=== PATIENT | male | born 1970 | race Caucasian/White ===

== ENCOUNTER 2025-03-03 07:39 | Inpatient (IN) | payer MEDICAID ==
[~2025-03-03] VITALS: Ht 185.4 cm; Wt 73.1 kg
[~2025-03-03 07:39] MED LIST: AMLO-708 PO; ASPI-1071 PO; ATOR-429 PO; CLOP75TA34 PO; LOSA50TA64 PO; METF-1203 PO
--- NOTE | 2025-03-03 07:51 | Physician Documentation ---
History of Present Illness ~ Stated Complaint: SORE THROAT Time Seen by MD: 07:46 Primary Medical Doctor: NONE HPI This is a 55-year-old gentleman status post endarterectomy on the right side with Dr. Wynn a week ago, presents for evaluation of throat pain and sensation of difficulty swallowing that began last night without any obvious trigger, trauma provocation. No particular palliating or aggravating factors. No voice changes. No difficulty breathing. Compliant with all his meds. Denies any trauma. No bleeding from the site of wound. He states that Dr. Wynn told him to come in if he develops any symptoms in his neck. No concern for tobacco, alcohol or illicit substances use Medication Reconciliation Allergies: Coded Allergies: No Known Allergies (Unverified , 03/03/25) Scheduled Amlodipine Besylate (Amlodipine Besylate), 1 TAB PO DAILY Aspirin (Ecotrin*), 1 TAB PO DAILY Atorvastatin Calcium* (Lipitor*), 1 TAB PO DAILY Clopidogrel Bisulfate (Clopidogrel), 75 MG PO DAILY Losartan Potassium (Losartan Potassium), 50 MG PO DAILY Metformin HCl (Metformin HCl), 1 TAB PO TIDWM Past Medical History Past Medical History: No Pertinent History Past Surgical History: noncontributory Alcohol Use: None Drug Use: none Lives with: Family Lives In: Home Review of Systems ROS 10 point review of systems was performed and unless noted above in HPI is negative for acute process/complaint. Physical Exam Physical Exam GENERAL: Awake, alert, oriented, GCS 15, no apparent distress, non-toxic appearing, answers questions, follows commands appropriately. HEENT: Atraumatic, normocephalic, pupils equal, extraocular muscles intact, sclerae anicteric, mucus membranes moist, oropharynx is clear, no stridor. NECK: supple, full active range of motion, trachea midline, no thyromegaly, no l ymphadenopathy, no JVD. CARDIOVASCULAR: regular rate/rhythm, no murmurs/gallops/rubs, Pulses are 2+ in all extremities and symmetric. Capillary refill less than 2 seconds. PULMONARY: Nonlabored, good air movement ,no respiratory distress, speaking in full sentences, clear to auscultation bilaterally, no wheezing, no ronchi, no rales, no accessory muscle use. GASTROINTESTINAL: Soft, non-tender, non-distended, normal active bowel sounds, no organomegaly, no pulsatile masses, no CVA tenderness. NEUROLOGIC: Lucid with normal mental status. Normal facial symmetry. Moves all extremities symmetrically and with purpose. No truncal ataxia. Speech is fluid without evidence of dysarthria or aphasia, no focal deficits appreciated. MUSCULOSKELETAL: There is full range of motion of all extremities. There is no joint pain or joint swelling or joint erythema. There is no muscle pain or tenderness or swelling. EXTREMITIES: warm, well-perfused, no cyanosis, no clubbing, no edema, no acute deformities. Skin: warm, dry, no rashes or lesions, no jaundice, no petechiae orpurpura. No ecchymosis. PSYCHIATRIC: Normal affect, normal insight, normal concentration. Focused exam: Endarterectomy site is clean, dry, intact. No pulsatile masses. Tender to palpation. Posterior oropharynx is erythematous. No exudate. No evidence of airway obstruction. Uvula midline. No stridor. No pain with flexion or extension of the neck. Progress Results/Orders Results/Orders Orders - IVÁN MITCHELL DO Covid19 Binax Poc Result Entry (03/03/25 07:47) Ct Neck Soft Tissues (03/03/25 08:44) Cult Throat + R/O Beta Strep (03/03/25 09:42) Completed Orders - IVÁN MITCHELL DO Cbc/Diff (03/03/25 07:47) ESR (03/03/25 07:47) C-Reactive Protein (03/03/25 07:47) Pt Inr (03/03/25 07:47) PTT (03/03/25 07:47) CMP (03/03/25 07:47) Ct Neck Soft Tissues (03/03/25 08:44) Strep A Rapid (03/03/25 07:48) Vital Signs 03/03/25 03/03/25 07:45 08:00 Temp 97.4 Pulse 89 Resp 16 16 B/P (MAP) 185/107 Pulse Ox 99 O2 Flow Rate 0 Laboratory Tests Test 03/03/25 07:45 03/03/25 08:05 03/03/25 08:10 SARS-CoV-2 Antigen (Rapid) Negative White Blood Count 8.4 Red Blood Count 4.74 Hemoglobin 13.4 L Hematocrit 39.3 L Mean Corpuscular Volume 82.8 Mean Corpuscular Hemoglobin 28.3 Mean Corpuscular Hemoglobin Concent 34.1 Red Cell Distribution Width 14.3 Platelet Count 213 Mean Platelet Volume 8.8 Neutrophils (%) (Auto) 67.6 Lymphocytes (%) (Auto) 20.0 L Monocytes (%) (Auto) 8.4 Eosinophils (%) (Auto) 3.2 Basophils (%) (Auto) 0.8 Neutrophils # (Auto) 5.7 Lymphocytes # (Auto) 1.7 Monocytes # (Auto) 0.7 Eosinophils # (Auto) 0.3 Basophils # (Auto) 0.1 CBC Comment Erythrocyte Sedimentation Rate 26 H Prothrombin Time 10.7 INR International Normalized Ratio 1.0 Activated Partial Thromboplast Time 26 Coagulation Comments Sodium Level 141 Potassium Level 4.5 Chloride Level 105 Carbon Dioxide Level 30.5 Anion Gap 6 L Blood Urea Nitrogen 19 H Creatinine 0.98 Estimated GFR/1.73 m2 79 BUN/Creatinine Ratio 19.4 Glucose Level 281 H Calcium Level 8.9 Total Bilirubin 0.6 Aspartate Amino Transf (AST/SGOT) 63 H Alanine Aminotransferase (ALT/SGPT) 93 H Alkaline Phosphatase 57 C-Reactive Protein 0.22 Total Protein 8.0 Albumin 3.6 Globulin 4.4 H Albumin/Globulin Ratio 0.8 L Chemistry Comments Group A Streptococcus Rapid Negative Medical Decision Making Findings Facility Status: ED Holds, [facility] process The plan was discussed with the patient, who demonstrates clear understanding of the plan and is in agreement with the plan unless otherwise noted in the chart. All questions have been answered, all concerns were addressed unless otherwise documented. I was available throughout their ED stay for frequent reassessment and questions. Differential Diagnoses (considered and possible or likely): [COVID, influenza, RSV, strep, less likely postoperative complication such as abscess, bleed, seroma, no evidence of airway obstruction.] ??Differential Diagnoses (considered and unlikely, not requiring evaluation currently): [See above] [facility] Data Please see [facility] for the following: Independent Historians and external Records Review. Historian: [Patient] Independent Historians: ?[Record review] Medication Management: [Reviewed medication list] Social History and determinants: [Reviewed] Please see the body of the note for the following: Any independent interpretations of ECG, imaging studies. All vitals signs/haemodynamics, ordered tests were independently reviewed and interpreted by myself. Nursing triage complaint and vitals reviewed, additional nursing notes were reviewed as available and I agree unless otherwise noted or documented in contra diction in the chart Vital Signs: Independently reviewed Labs: Independently interpreted Imaging: Independently interpreted Old Medical Records: Independently reviewed, see HPI for relevant summary and information Pulse Oximetry: [98%] interpreted as [normal on room air] by me [Optical Assistant: [Regular Rate, Regular rhythm, no ectopy, NSR] reviewed and interpreted by me] Additionally notably showing: [He is hemodynamically stable. Laboratory studies show mildly elevated ESR, otherwise no white count. Transaminitis noted. CT shows complex fluid collection with a gas adjacent to the carotid.] Tests considered but not ordered include: [Repeat angiography, if necessary, can be done on an inpatient basis] Social Determinants of Health Impact: Patient was evaluated in [facility] [place] access to healthcare due to below par ratio of patient to medical providers. [] Comorbid Conditions Impacting Present Evaluation and Care/Treatment: [Recent postop] Management Discussions with other Healthcare Providers: [Dr. Wynn, his vascular surgeon, who requests the patient to be admitted. He will see him in the hospital. Hospitalist regarding admission] Treatment and Disposition Medication Management (Given or considered): [Prophylactic antibiotics]. See EMR for details Consideration for Hospitalization/Escalation/Deescalation of Care: Admission for observation has been considered, and appears to be necessary as per recommendation of the specialist ?ED Course:?[No clinical deterioration] ?Shared decision making:?[] Code status:?FULL Please see the full Electronic Medical Record for full details of nursing documentation, medications list, other records of complete past medical history and conditions, vital signs, laboratory studies, and any radiologic study interpretations by radiologists. Portions of this note were completed using [employer] dictation software and as a result there may exist minor errors in spelling. I have reviewed elements of past family and social history and agree as included in note. Departure Disposition: 09 ADMITTED INPATIENT Impression: Primary Impression: Postoperative complication Additional Impression: Neck pain Condition: Stable Referrals: NO PRIMARY CARE PROVIDER (PCP) Education Educated: Patient Educated regarding: diagnosis, treatment Signature Scribe Signature: No scribe Attestation: This note accurately reflects clinical decisions, work performed by myself, DO STEPHEN Viveros NICHOLAS M DO Mar 03, 2025 07:51
[2025-03-03 08:21] LABS: MEAN PLATELET VOLUME 8.8 FL (7.4-10.4); RED CELL DISTRIBUTION WIDTH 14.3 % (11.5-14.5)
[2025-03-03 08:29] LABS: APTT 26 SECONDS (22-32); CREATININE 0.98 MG/DL (0.60-1.10); INR 1.0 INR; TOTAL CARBON DIOXIDE 30.5 MMOL/L (24-32); eCRCL 88 ML/MIN; eGFR 79 ML/MIN
[2025-03-03] MEDS ORDERED: iohexol 300mg/ml 100ml inj. ONE (08:35)
[2025-03-03 09:42] LABS: STREP A SCREEN NEGATIVE (Neg)
--- NOTE | 2025-03-03 09:49 | RADIOLOGY REPORT ---
CLINICAL INFORMATION: Pain and swelling, 1 week status post endarterectomy. TECHNIQUE: Axial CT images of the neck soft tissues were obtained after the uneventful administration of 100 mL Omnipaque 300 IV contrast. Coronal and sagittal reformatted images were obtained, stored, and reviewed. One or more of the following dose reduction techniques were used: Automated exposure control. Adjustment of mA and/or kV according to patient size. CTDIvol = 15.68 mGy DLP = 443.63 mGy-cm COMPARISON: CT CTA NECK/HEAD on DOS: 02/12/25 FINDINGS: Nasopharynx: Torus tubarius and fossa of Rosenmuller are unremarkable. No mass or fluid collection. Unremarkable adenoid tonsils. Oropharynx: Mild symmetric prominence of the lingual tonsils. Harmony tonsils are within normal limits. No mass or fluid collection identified. Hypopharynx/Larynx: Unremarkable. No mass or fluid collection. Paranasal sinuses: Clear. Lymph nodes: No lymphadenopathy. Neck glands: Small subcentimeter right thyroid nodule. Submandibular glands and parotid glands are unremarkable. Vasculature: Interval postsurgical changes consistent with history of right carotid endarterectomy. There is a complex fluid collection adjacent to the lateral aspect of the right carotid bifurcation and internal carotid artery measuring up to 2.3 x 2.4 x 4.6 cm, containing locules of gas. There is no extravasation of arterial contrast demonstrated. There is dense calcified and noncalcified atheromatous plaque in the left carotid bifurcation and proximal left ICA, similar to the prior exam with up to 70% stenosis at the proximal left internal carotid artery. Bones: Degenerative disc disease in the cervical spine with multilevel moderate to severe disc space narrowing, endplate sclerosis, and endplate spurring. Visualized superior mediastinum: Unremarkable. Lung apices: Unremarkable. Other findings: None. IMPRESSION: 1. Interval postsurgical changes of right carotid endarterectomy. Complex fluid collection along the lateral aspect of the right carotid bifurcation and right internal carotid artery containing complex fluid and gas. The gas is greater than would be expected for postoperative changes 1 week after surgery. Infectious etiology, including necrotizing infection can not be excluded in the appropriate clinical setting. Correlate with clinical findings. 2. No extravasation of arterial contrast is seen associated with the collection. 3. Atherosclerotic plaque of the left carotid bifurcation and proximal ICA as described above, similar to the prior exam. 4. Additional findings as detailed above.
[2025-03-03] MEDS ORDERED: VANCOMYCIN 1GM 200ML H20 (PEG) 200 ML IV ONE (10:25)
[2025-03-03] MEDS: vancomycin/NS 1 GM ADD-VANTAGE 250 ML IV ONE (11:00)
[2025-03-03 12:30] VITALS: BP 150/94; PULSE 82; RESP 16; TEMP 97.3; O2SAT 98
[2025-03-03] MEDS ORDERED: ondansetron/PF 4mg/2ml inj IV PRN ×2 (12:45→12:55)
[2025-03-03] MEDS ORDERED: potassium Cl 20 mEq SR tablet PO PRN ×4 (12:45→12:55)
[2025-03-03] MEDS ORDERED: magnesium sulf-water 2g/50mL 50 ML IV PRN ×2 (12:45→12:55)
[2025-03-03] MEDS ORDERED: potassium Cl 40MEQ/1/2NS 520ml 520 ML IV PRN ×2 (12:45→12:55)
[2025-03-03] MEDS ORDERED: magnesium Cl slow-release 64mg tablet PO PRN ×2 (12:45→12:55)
[2025-03-03] MEDS ORDERED: magnesium sulf-water 4G/100mL 100 ML IV PRN ×2 (12:45→12:55)
[2025-03-03] MEDS ORDERED: mag hydrox/Alum hydrox/simeth 30ml oral suspension PO PRN ×2 (12:45→12:55)
[2025-03-03] MEDS ORDERED: magnesium hydroxide 30ml (MOM) UD suspension PO PRN ×2 (12:45→12:55)
[2025-03-03 13:43] LABS: APTT 26 SECONDS (22-32); INR 1.1 INR
[2025-03-03] MEDS: piperacillin/tazo 4.5gm/100ml 100 ML IV ONE (15:57)
[2025-03-03 18:00] VITALS: BP 157/99; PULSE 80; RESP 16; TEMP 97.6; O2SAT 99
[2025-03-03] MEDS ORDERED: dextrose 50%-water 50ml dispensing syringe IV PRN ×2 (19:05)
[2025-03-03] MEDS ORDERED: glucagon, human recombinant 1mg kit SUBCUT PRN (19:05)
[2025-03-03] MEDS ORDERED: DEXTROSE 15 GM of carb/4 tabs (each vial/BOTTLE has 4 tablets) PO PRN ×2 (19:05)
[2025-03-03 20:00] VITALS: RESP 16; O2SAT 95
[2025-03-03] MEDS ORDERED: K and/or MAG REPLACEMENT MC SCH (20:00)
[2025-03-03] MEDS: K and/or MAG REPLACEMENT MC SCH (20:00)
[2025-03-03] MEDS ORDERED: docusate sod 100mg capsule PO SCH (20:00)
[2025-03-03] MEDS: docusate sod 100mg capsule PO SCH (20:25)
[2025-03-03] MEDS: heparin, porcine 5000 units/ml vial SQ SCH (20:26)
--- NOTE | 2025-03-03 20:49 | HISTORY AND PHYSICAL-Residence ---
History & Physical Providers to CC Resident Creating Document: IRINEO LÓPEZ RES ~ History of Present Illness Primary Medical Doctor: NONE Reason for Admit\Complaint: Dysphagia History of Present Illness 55-year-old male with past medical history of stroke status post carotid endarterectomy came to the ER with complaints of sore throat this morning and mild difficulty in swallowing his pills today. He denies fever, chills, cough, recent infections. He reports he has been having acid reflux for many years and has been taking Tums. He denies any choking episodes, hoarseness or voice changes. He denies weight loss. He denies chest pain, palpitations, abdominal pain, nausea, vomiting, constipation, diarrhea and neurological deficits He claims he has 80% left carotid stenosis and needs a carotid endarterectomy which is why he was admitted. Allergies: Coded Allergies: No Known Allergies (Unverified , 03/03/25) Home Medications Home Medications Active Metformin HCl 500 Mg Tablet 1 Tab PO TIDWM Ecotrin* (Aspirin) 81 Mg Tablet.dr 1 Tab PO DAILY Losartan Potassium 50 Mg Tablet 50 Mg PO DAILY Amlodipine Besylate 10 Mg Tablet 1 Tab PO DAILY 30 Days Lipitor* (Atorvastatin Calcium) 80 Mg Tablet 1 Tab PO DAILY 30 Days Clopidogrel (Clopidogrel Bisulfate) 75 Mg Tablet 75 Mg PO DAILY Do not stop medication unless instructed by prescriber. 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 Gastrointestinal: Reports less appetite, No Abdominal pain, vomiting,nausea,constipation,diarrhea. No hematemesis or melena. Musculoskeletal: No Swelling, pain in bilateral lower legs. Integumentary: No change in skin, hair, nails. No swelling, bruising, abrasions Neurologic: No weakness,No headache, neck pain, numbness or tingling of the extremities, Psychiatric: No delusions, depression, loss of interest in normal activity or change in sleep pattern, hallucinations, suicidal ideations Endocrine: No fatigue, no weakness. polydipsia, polyuria, change in appetite, heat or cold intolerance, sweating, dry skin Hematological: No bleeding, petechiae, bruising Allergies: No asthma or urticaria Exam Vitals: Vital Signs Date Time Temp Pulse Resp B/P (MAP) Pulse Ox O2 Delivery O2 Flow Rate FiO2 03/03/25 20:25 80 03/03/25 17:22 Room Air 03/03/25 12:30 97.3 16 150/94 (112) 98 03/03/25 11:41 0 General: Awake , alert, and oriented x4, resting comfortably in the bed, in no acute distress HEENT: Atraumatic, normocephalic, EOMI, anicteric sclera ; pink conjunctiva Neck: Right sided swelling near surgical site, non tender with no drainage. Trachea midline. Supple, full range of motion, no JVD Cardiac: Regular rhythm, regular rate with no murmurs all over the precordium. Respiratory: Equal breath sounds bilaterally, no tachypnea, no wheezing ,rub or rales, Chest wall is symmetric and without deformity. Gastrointestinal: Abdomen symmetric, non-distended, soft, non-tender, normal bowel sounds x4 quadrant, normoactive, no hepatosplenomegaly Musculoskeletal: No pedal edema, no cyanosis Neurological: Speech is clear, alert, and oriented x 4. No motor or sensory deficit, deep tendon reflexes normal, cerebellar intact. Cranial nerves II-XII intact. Skin: Warm and dry Diagnostic Data Last Recorded Lab Results: 03/03/2580403/03/25804 Diagnostic Data: Laboratory Tests Test 03/03/25 13:06 Prothrombin Time 10.8 SECONDS (9.0-12.0) INR International Normalized Ratio 1.1 INR Activated Partial Thromboplast Time 26 SECONDS (22-32) Coagulation Comments Additional Plan Sore throat, dysphasia probably due to GERD Resolution of symptoms by today evening Started Protonix 40 mg p.o. Carotid stenosis Previous head/neck CTA on 02/12/25 shows Left internal carotid artery demonstrates 80% stenosis of the proximal left internal carotid artery with eccentric mural wall thrombus. He had 60% stenosis of right internal carotid artery s/p carotid endarterectomy by Dr. Wynn on 02/17/25 Mild swelling in the area of right carotid endarterectomy surgical site, non erythematous, nontender with no drainage His neck CT showed fluid collection along the lateral aspect of right carotid bifurcation and right internal carotid artery containing complex fluid and gas. Patient will be observed over the weekend and scheduled for a left carotid endarterectomy by Dr. Wynn Continued aspirin 81 mg p.o.,clopidogrel 75 mg p.o. daily and atorvastatin 80 mg p.o. Patient is afebrile WBC is normal Follow up procalcitonin, lactic acid Hypertension Blood pressure was in 160's on admission Continue losartan 50 mg p.o. and amlodipine 10 mg p.o. daily NIDDM Hyperglycemia HB A1c 7.7 Glucose is elevated to 281 Discontinued his home medication metformin Started on hyperglycemia hypoglycemia protocol Code status: Full code DVT prophylaxis: Heparin GI prophylaxis: Protonix 40 mg p.o. Diet/nutrition: Regular diet Prognosis: Guarded Disposition: Continue medical management, will be observed over the weekend for left carotid endarterectomy, PT eval and DC plan Resident MD attestation: The patient note has been reviewed and supervised by senior residents PGY-2/ PGY-3. Patient was seen, examined and discussed with attending physician. Irineo López MD Internal Medicine resident, PGY-1 Date of Service: Mar 03, 2025 Billing Provider: ROHAN CRUM MD Common Visit Codes: [id number] INP/OBS CARE (HIGH) Secondary Visit Codes: [id number] CARE PLAN 30 MINUTES IRINEO LÓPEZ, MELISSA Mar 03, 2025 20:49 ROHAN CRUM MD Mar 04, 2025 08:14
[2025-03-03 22:00] VITALS: BP 134/77; PULSE 80; RESP 16; TEMP 98.6; O2SAT 98
[2025-03-04 05:52] LABS: MEAN PLATELET VOLUME 8.7 FL (7.4-10.4); RED CELL DISTRIBUTION WIDTH 14.1 % (11.5-14.5)
[2025-03-04 06:00] VITALS: BP 131/82; PULSE 71; RESP 16; TEMP 98.1; O2SAT 97
[2025-03-04 06:13] LABS: CHOL/HDL RATIO 3.0 (0.00-4.99); CREATININE 0.84 MG/DL (0.60-1.10); LDL CHOLESTEROL 48 MG/DL (50-100); TOTAL CARBON DIOXIDE 27.6 MMOL/L (24-32); eCRCL 103 ML/MIN; eGFR > 90 ML/MIN
[2025-03-04] MEDS: aspirin 81mg, enteric-coated 1 TAB TABLET.DR PO SCH (07:58)
[2025-03-04] MEDS: pantoprazole 40mg Tablet.DR PO SCH (08:00)
[2025-03-04 10:00] VITALS: BP 155/96; PULSE 78; RESP 15; TEMP 97.9; O2SAT 99
[2025-03-04] MEDS ORDERED: dextrose 50%-water 50ml dispensing syringe IV PRN ×2 (12:50)
[2025-03-04] MEDS ORDERED: glucagon, human recombinant 1mg kit SUBCUT PRN (12:50)
[2025-03-04] MEDS ORDERED: DEXTROSE 15 GM of carb/4 tabs (each vial/BOTTLE has 4 tablets) PO PRN ×2 (12:50)
[2025-03-04 18:00] VITALS: BP 148/94; PULSE 85; RESP 13; TEMP 98.1; O2SAT 98
--- NOTE | 2025-03-04 19:13 | PROGRESS NOTE ---
Progress Note ID Providers to CC ~ Progress Note Progress Note: no complaints blood cultures neg-left cea friday TRI EUBANKS MD Mar 04, 2025 19:13
[2025-03-04] MEDS: INSULIN LISPRO 100 UNIT/ML INSULN.PEN MULTI-DOSE SQ SCH (19:15)
[2025-03-04 19:25] VITALS: RESP 16; O2SAT 96
--- NOTE | 2025-03-04 20:34 | PROGRESS NOTE- Residence ---
Progress Note - Resident Providers to CC Resident Creating Document: IRINEO LÓPEZ RES ~ Antibiotic Timeout Antibiotic Ordered?: No Subjective Patient was seen and examined bedside. He has no sore throat nor difficulty in swallowing. He has no fever, chills, no neck pain. He denies any acute overnight symptoms. Objective Vital Signs Date Time Temp Pulse Resp B/P (MAP) Pulse Ox O2 Delivery O2 Flow Rate FiO2 03/04/25 19:25 16 96 Room Air 0.0 03/04/25 10:00 97.9 78 155/96 (115) Result Diagram: 03/04/25 0524 03/04/25 0524 Awake , alert, and oriented x4, resting comfortably in the bed, in no acute distress HEENT: Atraumatic, normocephalic, EOMI, anicteric sclera ; pink conjunctiva Neck: Right sided swelling near surgical site, non tender with no drainage. Trachea midline. Supple, full range of motion, no JVD Cardiac: Regular rhythm, regular rate with no murmurs all over the precordium. Respiratory: Equal breath sounds bilaterally, no tachypnea, no wheezing ,rub or rales, Chest wall is symmetric and without deformity. Gastrointestinal: Abdomen symmetric, non-distended, soft, non-tender, normal bowel sounds x4 quadrant, normoactive, no hepatosplenomegaly Musculoskeletal: No pedal edema, no cyanosis Neurological: Speech is clear, alert, and oriented x 4. No motor or sensory deficit, deep tendon reflexes normal, cerebellar intact. Cranial nerves II-XII intact. Skin: Warm and dry Coagulation Studies Laboratory Tests Test 03/03/25 13:06 Prothrombin Time 10.8 SECONDS (9.0-12.0) INR International Normalized Ratio 1.1 INR Activated Partial Thromboplast Time 26 SECONDS (22-32) Coagulation Comments Assessment Assessment 55-year-old male presented to the ER with sore throat, difficulty swallowing pills and swelling in the right neck near carotid endarterectomy surgical site. He has 80% stenosis in the proximal left carotid artery with eccentric mural wall thrombus for which he was scheduled for left carotid endarterectomy by Dr. Wynn on Friday. Plan Plan Carotid stenosis Previous head/neck CTA on 02/12/25 shows Left internal carotid artery demonstrates 80% stenosis of the proximal left internal carotid artery with eccentric mural wall thrombus. He had 60% stenosis of right internal carotid artery s/p carotid endarterectomy by Dr. Wynn on 02/17/25 Mild swelling in the area of right carotid endarterectomy surgical site, non erythematous, nontender with no drainage His neck CT showed fluid collection along the lateral aspect of right carotid bifurcation and right internal carotid artery containing complex fluid and gas. Patient will be observed over the weekend and scheduled for a left carotid endarterectomy by Dr. Wynn Continued aspirin 81 mg p.o.,clopidogrel 75 mg p.o. daily and atorvastatin 80 mg p.o. Patient is afebrile WBC is normal Follow up procalcitonin, lactic acid 03/04/25: Procalcitonin is < 0.05, lactic acid is normal No signs of infection Patient is scheduled for left carotid endarterectomy by Dr. Wynn on Friday Sore throat, dysphasia probably due to GERD Resolution of symptoms by today evening Started Protonix 40 mg p.o. 03/04/25: No symptoms of sore throat or dysphagia today Continue Protonix 40 mg Hypertension Continue losartan 50 mg p.o. and amlodipine 10 mg p.o. daily NIDDM Hyperglycemia HB A1c 7.7 Glucose is elevated to 281 Discontinued his home medication metformin Started on hyperglycemia hypoglycemia protocol and carb controlled diet 03/04/25: Glucose has downtrended to 174 Monitor glucose levels Code status: Full code DVT prophylaxis: Heparin GI prophylaxis: Protonix 40 mg p.o. Diet/nutrition: Regular diet Prognosis: Guarded Disposition: Continue medical management, scheduled for left carotid endarterectomy on Friday by Dr. Wynn, PT eval and DC plan Resident MD attestation: The patient note has been reviewed and supervised by senior residents PGY-2/ PGY-3. Patient was seen, examined and discussed with attending physician. Irineo López MD Internal Medicine resident, PGY-1 Patient is seen and examined with resident at bedside agree with the above Case discussed with Dr. Wynn Date of Service: Mar 04, 2025 Billing Provider: NATASHA JORDAN MD Common Visit Codes: [id number] INP/OBS CARE(HIGH) IRINEO LÓPEZ, RES Mar 04, 2025 20:34 NATASHA JORDAN MD Mar 05, 2025 09:39
[2025-03-04] MEDS: insulin glargine (Lantus) pen - multi-dose SQ SCH (21:26)
[2025-03-04 22:00] VITALS: BP 150/92; PULSE 81; RESP 18; TEMP 97.8; O2SAT 98
[2025-03-05 06:00] VITALS: BP 148/83; PULSE 78; RESP 18; TEMP 98.1; O2SAT 98
[2025-03-05 06:13] LABS: MEAN PLATELET VOLUME 8.8 FL (7.4-10.4); RED CELL DISTRIBUTION WIDTH 14.4 % (11.5-14.5)
[2025-03-05 06:44] LABS: CREATININE 0.81 MG/DL (0.60-1.10); TOTAL CARBON DIOXIDE 26.1 MMOL/L (24-32); eCRCL 107 ML/MIN; eGFR > 90 ML/MIN
[2025-03-05 08:00] VITALS: RESP 18; O2SAT 98
[2025-03-05 10:00] VITALS: BP 156/92; PULSE 81; RESP 18; TEMP 97.7; O2SAT 100
--- NOTE | 2025-03-05 11:16 | PROGRESS NOTE ---
Progress Note ID Providers to CC ~ Progress Note Progress Note: no complaints/cea friday TRI EUBANKS MD Mar 05, 2025 11:16
[2025-03-05 17:00] VITALS: BP 155/86; PULSE 88; RESP 16; TEMP 97.5; O2SAT 100
--- NOTE | 2025-03-05 17:43 | PROGRESS NOTE- Residence ---
Progress Note - Resident Providers to CC Resident Creating Document: IRINEO LÓPEZ RES ~ Antibiotic Timeout Antibiotic Ordered?: No Subjective Patient was seen and examined bedside. He has no sore throat nor difficulty in swallowing. He has no fever, chills, no neck pain. He denies any acute overnight symptoms. Objective Vital Signs Date Time Temp Pulse Resp B/P (MAP) Pulse Ox O2 Delivery O2 Flow Rate FiO2 03/05/25 17:00 97.5 88 16 155/86 (109) 100 Room Air 03/04/25 19:25 0.0 Result Diagram: 03/05/25 0432 03/05/25 0432 Awake , alert, and oriented x4, resting comfortably in the bed, in no acute distress HEENT: Atraumatic, normocephalic, EOMI, anicteric sclera ; pink conjunctiva Neck: Right sided mild swelling near surgical site, non tender with no drainage. Trachea midline. Supple, full range of motion, no JVD Cardiac: Regular rhythm, regular rate with no murmurs all over the precordium. Respiratory: Equal breath sounds bilaterally, no tachypnea, no wheezing ,rub or rales, Chest wall is symmetric and without deformity. Gastrointestinal: Abdomen symmetric, non-distended, soft, non-tender, normal bowel sounds x4 quadrant, normoactive, no hepatosplenomegaly Musculoskeletal: No pedal edema, no cyanosis Neurological: Speech is clear, alert, and oriented x 4. No motor or sensory deficit, deep tendon reflexes normal, cerebellar intact. Cranial nerves II-XII intact. Skin: Warm and dry Coagulation Studies Laboratory Tests Test 03/03/25 13:06 Prothrombin Time 10.8 SECONDS (9.0-12.0) INR International Normalized Ratio 1.1 INR Activated Partial Thromboplast Time 26 SECONDS (22-32) Coagulation Comments Assessment Assessment 55-year-old male presented to the ER with sore throat, difficulty swallowing pills and swelling in the right neck near carotid endarterectomy surgical site. He has 80% stenosis in the proximal left carotid artery with eccentric mural wall thrombus for which he was scheduled for left carotid endarterectomy by Dr. Wynn on Friday. Plan Plan Carotid stenosis Previous head/neck CTA on 02/12/25 shows Left internal carotid artery demonstrates 80% stenosis of the proximal left internal carotid artery with eccentric mural wall thrombus. He had 60% stenosis of right internal carotid artery s/p carotid endarterectomy by Dr. Wynn on 02/17/25 Mild swelling in the area of right carotid endarterectomy surgical site, non erythematous, nontender with no drainage His neck CT showed fluid collection along the lateral aspect of right carotid bifurcation and right internal carotid artery containing complex fluid and gas. Patient will be observed over the weekend and scheduled for a left carotid endarterectomy by Dr. Wynn Continued aspirin 81 mg p.o.,clopidogrel 75 mg p.o. daily and atorvastatin 80 mg p.o. Patient is afebrile WBC is normal Follow up procalcitonin, lactic acid 03/04/25: Procalcitonin is < 0.05, lactic acid is normal No signs of infection Patient is scheduled for left carotid endarterectomy by Dr. Wynn on Friday03/05/25: Vital signs are normal WBC is normal Scheduled for left carotid endarterectomy by Dr. Wynn on friday Sore throat, dysphasia probably due to GERD Resolution of symptoms by today evening Started Protonix 40 mg p.o. 03/04/25: No symptoms of sore throat or dysphagia today Continue Protonix 40 mg Hypertension Continue losartan 50 mg p.o. and amlodipine 10 mg p.o. daily T2DM Hyperglycemia HB A1c 7.7 Glucose is elevated to 281 Discontinued his home medication metformin Started on hyperglycemia hypoglycemia protocol and carb controlled diet 03/04/25: Glucose has downtrended to 174 Monitor glucose levels 03/05/25: Glucose has downtrended to 120, goals ranging should be between 140-180s during hospitalization. Code status: Full code DVT prophylaxis: Heparin GI prophylaxis: Protonix 40 mg p.o. Diet/nutrition: Regular diet Prognosis: Guarded Disposition: Continue medical management, scheduled for left carotid endarterectomy on Friday by Dr. Wynn, PT eval and DC plan Resident attestation: The patient note has been reviewed and supervised by senior residents PGY-3 Dr Cottrell Patient was seen, examined and discussed with attending physician, Dr Abbey López MD Internal Medicine resident, PGY-1 Date of Service: Mar 05, 2025 Billing Provider: NATASHA JORDAN MD Common Visit Codes: [id number] INP/OBS CARE(HIGH) IRINEO LÓPEZ, RES Mar 05, 2025 17:43 ESTEFANIA COTTRELL, RES Mar 05, 2025 18:40 NATASHA JORDAN MD Mar 07, 2025 08:43
[2025-03-05 20:00] VITALS: RESP 16; O2SAT 99
[2025-03-05 22:00] VITALS: BP 149/88; PULSE 89; RESP 16; TEMP 97.9; O2SAT 99
[2025-03-06 05:39] LABS: MEAN PLATELET VOLUME 8.8 FL (7.4-10.4); RED CELL DISTRIBUTION WIDTH 14.2 % (11.5-14.5)
[2025-03-06 06:00] VITALS: BP 121/62; PULSE 86; RESP 19; TEMP 98.1; O2SAT 100
[2025-03-06 06:04] LABS: CREATININE 0.86 MG/DL (0.60-1.10); TOTAL CARBON DIOXIDE 28.7 MMOL/L (24-32); eCRCL 100 ML/MIN; eGFR > 90 ML/MIN
[2025-03-06 08:00] VITALS: RESP 19; O2SAT 100
--- NOTE | 2025-03-06 10:47 | PROGRESS NOTE- Residence ---
Progress Note - Resident Providers to CC Resident Creating Document: IRINEO LÓPEZ RES ~ Antibiotic Timeout Antibiotic Ordered?: No Subjective Patient was seen and examined bedside. He has no sore throat nor difficulty in swallowing. He has no fever, chills, no neck pain. He denies any acute overnight symptoms. Objective Vital Signs Date Time Temp Pulse Resp B/P (MAP) Pulse Ox O2 Delivery O2 Flow Rate FiO2 03/06/25 07:57 86 03/06/25 06:00 98.1 19 121/62 (81) 100 Room Air 03/05/25 20:00 0.0 Result Diagram: 03/06/25 0458 03/06/25 0458 Awake , alert, and oriented x4, resting comfortably in the bed, in no acute distress HEENT: Atraumatic, normocephalic, EOMI, anicteric sclera ; pink conjunctiva Neck: Right sided very mild swelling near surgical site, non tender with no drainage. Trachea midline. Supple, full range of motion, no JVD Cardiac: Regular rhythm, regular rate with no murmurs all over the precordium. Respiratory: Equal breath sounds bilaterally, no tachypnea, no wheezing ,rub or rales, Chest wall is symmetric and without deformity. Gastrointestinal: Abdomen symmetric, non-distended, soft, non-tender, normal bowel sounds x4 quadrant, normoactive, no hepatosplenomegaly Musculoskeletal: No pedal edema, no cyanosis Neurological: Speech is clear, alert, and oriented x 4. No motor or sensory deficit, deep tendon reflexes normal, cerebellar intact. Cranial nerves II-XII intact. gait is unstable due to residual stroke deficit Skin: Warm and dry Coagulation Studies Laboratory Tests Test 03/03/25 13:06 Prothrombin Time 10.8 SECONDS (9.0-12.0) INR International Normalized Ratio 1.1 INR Activated Partial Thromboplast Time 26 SECONDS (22-32) Coagulation Comments Assessment Assessment 55-year-old male presented to the ER with sore throat, difficulty swallowing pills and swelling in the right neck near carotid endarterectomy surgical site. He has 80% stenosis in the proximal left carotid artery with eccentric mural wall thrombus for which he was scheduled for left carotid endarterectomy by Dr. Wynn on Friday. Plan Plan Bilateral Carotid stenosis Previous head/neck CTA on 02/12/25 shows Left internal carotid artery demonstrates 80% stenosis of the proximal left internal carotid artery with eccentric mural wall thrombus. He had 60% stenosis of right internal carotid artery s/p carotid endarterectomy by Dr. Wynn on 02/17/25 Mild swelling in the area of right carotid endarterectomy surgical site, non erythematous, nontender with no drainage His neck CT showed fluid collection along the lateral aspect of right carotid bifurcation and right internal carotid artery containing complex fluid and gas. Patient will be observed over the weekend and scheduled for a left carotid endarterectomy by Dr. Wynn Continued aspirin 81 mg p.o.,clopidogrel 75 mg p.o. daily and atorvastatin 80 mg p.o. Patient is afebrile WBC is normal Follow up procalcitonin, lactic acid 03/04/25: Procalcitonin is < 0.05, lactic acid is normal No signs of infection Patient is scheduled for left carotid endarterectomy by Dr. Wynn on Friday03/05/25: Vital signs are normal WBC is normal Scheduled for left carotid endarterectomy by Dr. Wynn on friday03/06/25: No complaints reported Vital signs are normal WBC is normal Scheduled for left carotid endarterectomy by Dr. Wynn on friday Sore throat, dysphasia probably due to GERD Resolution of symptoms by today evening Started Protonix 40 mg p.o. 03/04/25: No symptoms of sore throat or dysphagia today Continue Protonix 40 mg Hypertension Continue losartan 50 mg p.o. and amlodipine 10 mg p.o. daily T2DM Hyperglycemia HB A1c 7.7 Glucose is elevated to 281 Discontinued his home medication metformin Started on hyperglycemia hypoglycemia protocol and carb controlled diet 03/04/25: Glucose has downtrended to 174 Monitor glucose levels 03/05/25: Glucose has downtrended to 120, goals ranging should be between 140-180s during hospitalization. 03/06/25: Glucose is normal 125, reduced Lantus dose from 15 to 10 Monitor BMP Code status: Full code DVT prophylaxis: Heparin subQ GI prophylaxis: Protonix 40 mg p.o. Diet/nutrition: Regular diet, NPO after midnight Prognosis: Guarded Disposition: Continue medical management, scheduled for left carotid endarterectomy on Friday by Dr. Wynn, PT eval and DC plan Resident attestation: The patient note has been reviewed and supervised by senior residents PGY-3 Dr Cottrell Patient was seen, examined and discussed with attending physician, Dr Abbey López MD Internal Medicine resident, PGY-1 Date of Service: Mar 06, 2025 Billing Provider: NATASHA JORDAN MD Common Visit Codes: [id number] INP/OBS CARE(HIGH) IRINEO LÓPEZ, RES Mar 06, 2025 10:47 ESTEFANIA COTTRELL, RES Mar 06, 2025 19:10 NATASHA JORDAN MD Mar 07, 2025 08:44
[2025-03-06] MEDS: lactose-reduced food (Ensure Enlive) - 237ml bottle PO SCH (13:00)
[2025-03-06 13:19] VITALS: BP 157/94; PULSE 84; RESP 18; TEMP 97.5; O2SAT 100
[2025-03-06 18:00] VITALS: BP 130/78; PULSE 83; RESP 15; TEMP 98.2; O2SAT 98
[2025-03-06 20:00] VITALS: RESP 15; O2SAT 98
[2025-03-06] MEDS: insulin glargine (Lantus) pen - multi-dose SQ SCH (20:38)
[2025-03-06 22:00] VITALS: BP 144/86; PULSE 80; RESP 16; TEMP 97; O2SAT 100
[2025-03-07] VITALS (22 sets, daily range): BP systolic 106–161; BP diastolic 58–91; PULSE 70–100; RESP 10–17; TEMP 96.8–97.5; O2SAT 97–100
--- NOTE | 2025-03-07 05:42 | ELECTROCARDIOGRAPH REPORT ---
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 DEON Levi Measurements Intervals [place] Rate: 77 P: 55 SD: 149 QRS: -64 QRSD: 142 T: 17 QT: 423 QTc: 479 Interpretive Statements Sinus rhythm Right bundle branch block Inferior infarct, old Electronically Signed On 03-07-2025 13:52:[address] DEON Levi Please click the below link to view image of tracing.
[2025-03-07 05:49] LABS: MEAN PLATELET VOLUME 8.6 FL (7.4-10.4); RED CELL DISTRIBUTION WIDTH 14.4 % (11.5-14.5)
[2025-03-07 06:13] LABS: CREATININE 0.85 MG/DL (0.60-1.10); TOTAL CARBON DIOXIDE 29.4 MMOL/L (24-32); eCRCL 102 ML/MIN; eGFR > 90 ML/MIN
[2025-03-07] MEDS ORDERED: enalaprilat 1.25mg/ml 2ml vial IV PRN (08:50)
[2025-03-07] MEDS ORDERED: ringers solution, lacted 1,000 ML IV SCH (08:50)
[2025-03-07] MEDS ORDERED: HYDROmorphone/PF 0.2 MG/ML SYRINGE IV PRN ×2 (08:50)
[2025-03-07] MEDS ORDERED: morphine 4 MG/ML inj SYRINge IV PRN (08:50)
[2025-03-07] MEDS ORDERED: ondansetron/PF 4mg/2ml inj IV PRN (08:50)
[2025-03-07] MEDS ORDERED: fentaNYL/PF 50MCG/1 ML 2ML syringe IV PRN ×2 (08:50)
[2025-03-07] MEDS ORDERED: labetalol 20mg/4ml (5mg/ml) syringe IV PRN (08:50)
[2025-03-07] MEDS ORDERED: heparin 10,000 units/1 ML INJ ONE ×3 (09:13→09:51)
[2025-03-07] MEDS ORDERED: LIDOcaine 1% (10mg/ml)w/preservative inj. 20ml MDV ONE (09:23)
[2025-03-07] MEDS ORDERED: protamine sulfate 10mg/ml inj. ONE ×2 (09:23→13:18)
[2025-03-07] MEDS ORDERED: fentaNYL /PF 50mcg/ml 5ml ampule ONE (09:34)
[2025-03-07] MEDS ORDERED: midazolam 1 mg/ML 2ml injection ONE (09:34)
[2025-03-07] MEDS ORDERED: nitroPRUSSIDE 0.2mg/mL in NS 100 ML IV PRN (09:35)
[2025-03-07] MEDS ORDERED: propofol inj 20 ML IV ONE (10:02)
[2025-03-07] MEDS ORDERED: rocuronium 10mg/ml inj IV ONE (10:02)
--- NOTE | 2025-03-07 10:25 | PROGRESS NOTE ---
Progress Note ID Providers to CC ~ Progress Note Progress Note: discussed procedure including risks/benefits/alternatives TRI EUBANKS MD Mar 07, 2025 10:25
[2025-03-07] MEDS: hydrALAZINE 20mg/ml inj. IV ONE (11:20)
[2025-03-07] MEDS: ceFAZolin 2gm/dext,iso 50mL 50 ML IV ONE (11:25)
[2025-03-07] MEDS ORDERED: dexamethasone sod phosphate 4mg/ml inj. ONE (11:50)
[2025-03-07] MEDS ORDERED: ondansetron/PF 4mg/2ml inj ONE (11:50)
[2025-03-07] MEDS: LIDOcaine 1% 30ml preserv. free vial IJ ONE (11:50)
[2025-03-07] MEDS: DESMOPRESSIN IV ONE (13:15)
[2025-03-07] MEDS: NORMAL SALINE IV ONE (13:15)
[2025-03-07] MEDS ORDERED: DESMOPRESSIN IV STA (13:17)
[2025-03-07] MEDS ORDERED: NORMAL SALINE IV STA (13:17)
[2025-03-07] MEDS ORDERED: albumin (Human) 5% 250ml 250 ML IV ONE (13:23)
[2025-03-07] MEDS ORDERED: morphine 4 MG/ML inj SYRINge ONE (13:48)
[2025-03-07 14:08] LABS: APTT 27 SECONDS (22-32); INR 1.2 INR
--- NOTE | 2025-03-07 14:10 | PROGRESS NOTE- Residence ---
Progress Note - Resident Providers to CC Resident Creating Document: KATE DE LA TORRE, MELISSA ~ Antibiotic Timeout Antibiotic Ordered?: No Subjective Patient was seen and examined bedside. He has no sore throat nor difficulty in swallowing. He has no fever, chills, no neck pain. He denies any acute overnight symptoms. Objective Vital Signs Date Time Temp Pulse Resp B/P (MAP) Pulse Ox O2 Delivery O2 Flow Rate FiO2 03/07/25 08:00 Room Air 0.0 03/07/25 06:00 96.8 70 16 136/78 (97) 100 Result Diagram: 03/07/25 0504 03/07/25 0504 Awake , alert, and oriented x4, resting comfortably in the bed, in no acute distress HEENT: Atraumatic, normocephalic, EOMI, anicteric sclera ; pink conjunctiva Neck: Right sided very mild swelling near surgical site, non tender with no drainage. Trachea midline. Supple, full range of motion, no JVD Cardiac: Regular rhythm, regular rate with no murmurs all over the precordium. Respiratory: Equal breath sounds bilaterally, no tachypnea, no wheezing ,rub or rales, Chest wall is symmetric and without deformity. Gastrointestinal: Abdomen symmetric, non-distended, soft, non-tender, normal bowel sounds x4 quadrant, normoactive, no hepatosplenomegaly Musculoskeletal: No pedal edema, no cyanosis Neurological: Speech is clear, alert, and oriented x 4. No motor or sensory deficit, deep tendon reflexes normal, cerebellar intact. Cranial nerves II-XII intact. gait is unstable due to residual stroke deficit Skin: Warm and dry Coagulation Studies Laboratory Tests Test 03/07/25 13:25 Coagulation Comments Advance Care Planning Advanced Care plannin - 30 Minutes Assessment Assessment 55-year-old male presented to the ER with sore throat, difficulty swallowing pills and swelling in the right neck near carotid endarterectomy surgical site. He has 80% stenosis in the proximal left carotid artery with eccentric mural wall thrombus for which he was scheduled for left carotid endarterectomy by Dr. Wynn on Friday. Plan Plan Bilateral Carotid stenosis Previous head/neck CTA on 02/12/25 shows Left internal carotid artery demonstrates 80% stenosis of the proximal left internal carotid artery with eccentric mural wall thrombus. He had 60% stenosis of right internal carotid artery s/p carotid endarterectomy by Dr. Wynn on 02/17/25 Mild swelling in the area of right carotid endarterectomy surgical site, non erythematous, nontender with no drainage His neck CT showed fluid collection along the lateral aspect of right carotid bifurcation and right internal carotid artery containing complex fluid and gas. Patient will be observed over the weekend and scheduled for a left carotid endarterectomy by Dr. Wynn Continued aspirin 81 mg p.o.,clopidogrel 75 mg p.o. daily and atorvastatin 80 mg p.o. Patient is afebrile WBC is normal Follow up procalcitonin, lactic acid 03/04/25: Procalcitonin is < 0.05, lactic acid is normal No signs of infection Patient is scheduled for left carotid endarterectomy by Dr. Wynn on Friday03/05/25: Vital signs are normal WBC is normal Scheduled for left carotid endarterectomy by Dr. Wynn on friday03/06/25: No complaints reported Vital signs are normal WBC is normal Scheduled for left carotid endarterectomy by Dr. Wynn on friday03/07/2025: Vitals stable. With no acute overnight symptoms Patient is scheduled for left carotid endarterectomy today Sore throat, dysphasia probably due to GERD Resolution of symptoms by today evening Started Protonix 40 mg p.o. 03/04/25: No symptoms of sore throat or dysphagia today Continue Protonix 40 mg Hypertension Continue losartan 50 mg p.o. and amlodipine 10 mg p.o. daily T2DM HB A1c 7.7 Glucose is elevated to 281 Discontinued his home medication metformin Started on hyperglycemia hypoglycemia protocol and carb controlled diet 03/04/25: Glucose has downtrended to 174 Monitor glucose levels 03/05/25: Glucose has downtrended to 120, goals ranging should be between 140-180s during hospitalization. 03/06/25: Glucose is normal 125, reduced Lantus dose from 15 to 10 Monitor BMP 03/07/2025 Glucose normal at 138, continue Lantus 10 units as above Code status: Full code DVT prophylaxis: Heparin subQ GI prophylaxis: Protonix 40 mg p.o. Diet/nutrition: Regular diet, post surgery Prognosis: Guarded Disposition: Continue medical management, scheduled for left carotid endarterectomy today by Dr. Wynn, PT eval and DC sadie De La Torre MD Internal Medicine Resident, PGY-2 Date of Service: Mar 07, 2025 Billing Provider: NATASHA JORDAN MD Common Visit Codes: [id number] INP/OBS CARE(HIGH) KATE DE LA TORRE, RES Mar 07, 2025 14:10 NATASHA JORDAN MD Mar 10, 2025 11:18
--- NOTE | 2025-03-07 14:23 | OPERATIVE REPORT ---
Operative Report Providers to CC ~ Date of Procedure: Mar 07, 2025 Pre-Operative Diagnosis: symptomatic left ica stenosis Post-Operative Diagnosis SAME as PRE-Op Procedure Performed left cea with eeg monitoring and bovine pericardial patch Surgeon: lisa recinos Anesthesiologist: Khadar Jackson Type of Anesthesia: General Findings: critical left ica stenosis-no eeg changes Estimated Blood Loss: 300 ml Specimen Removed: ica plaque TRI EUBANKS MD Mar 07, 2025 14:23
[2025-03-07] MEDS ORDERED: HYDROcodone/acetaminophen 10/325mg tab PO PRN (14:30)
[2025-03-07] MEDS ORDERED: CLOP75TA34 PO (14:33)
[2025-03-07] MEDS ORDERED: ATOR-2 PO (14:33)
[2025-03-07] MEDS ORDERED: ASPI81TA49 PO (14:33)
[2025-03-07] MEDS ORDERED: LOSA50TA64 PO (14:33)
[2025-03-07] MEDS ORDERED: METF-1203 PO (14:33)
[2025-03-07] MEDS ORDERED: AMLO-256 PO (14:34)
[2025-03-07] MEDS: PHENYLephrine 10mg/ml inj. 50 MG in normal saline 250ml IV soln 245 ML IV SCH (15:29)
[2025-03-07] MEDS ORDERED: ceFAZolin/D5W- 1GM premix 50 ML IV SCH (16:00)
[2025-03-07] MEDS: ceFAZolin/D5W- 1GM premix 50 ML IV SCH (16:43)
[2025-03-07] MEDS: HYDROmorphone inj. 0.5 MG/0.5 ML DISP.SYRIN IV PRN (16:44)
[2025-03-07] MEDS: ondansetron/PF 4mg/2ml inj IV PRN (18:09)
--- NOTE | 2025-03-07 19:20 | CONSULTATION ---
DATE OF CONSULTATION: 03/04/2025 DICTATING PHYSICIAN: Inder Wynn MD REASON FOR CONSULTATION: Neck swelling. HISTORY OF PRESENT ILLNESS: The patient is a 55-year-old male with a history of bilateral carotid stenosis, who underwent a recent right carotid endarterectomy in the last few weeks. The patient ____ swelling, difficulty swallowing. No fever or chills. No drainage from the incision. No additional neurologic deficits identified. PAST MEDICAL HISTORY: * Bilateral carotid stenosis. * Ongoing tobacco use. * GERD. * Hyperlipidemia. * Diabetes. * Status post CVA. PAST SURGICAL HISTORY: Previous carotid endarterectomy, tonsillectomy. HOME MEDICATIONS: Metformin, Ecotrin, losartan, amlodipine, Lipitor, and Plavix. ALLERGIES: None. SOCIAL HISTORY: No history of tobacco use. REVIEW OF SYSTEMS: See H and P. PHYSICAL EXAMINATION: GENERAL: He is a well-nourished male in minimal distress. VITAL SIGNS: Unremarkable. NECK: Right neck has mild swelling. No fluctuance. No erythema. No drainage. HEART: Regular rate and rhythm. LUNGS: Clear to auscultation. ABDOMEN: Benign. NEUROLOGIC: Shows no lateralizing signs. LABORATORY DATA: Labs obtained, hematocrit of 37, platelet count 205. Chemistries unremarkable. IMAGING STUDIES: CT of the neck reveals some complex collection in the right neck wound. There is persistent severe left ICA stenosis. IMPRESSION: * Status post right ____, doing well. No evidence of wound infection. * Severe left ICA stenosis. * Hyperlipidemia. * Status post CVA. * Diabetes. * Ongoing tobacco use. RECOMMENDATIONS: * Blood cultures. * Consider left carotid endarterectomy with admission if culture is negative. Inder Wynn MD TID: [id number] RECEIPT: [id number] MARIA TERESA/MAYA/OBDULIA
[2025-03-08] VITALS (16 sets, daily range): BP systolic 132–164; BP diastolic 66–97; PULSE 82–101; RESP 12–21; O2SAT 97–100
[2025-03-08 02:19] LABS: MEAN PLATELET VOLUME 8.9 FL (7.4-10.4); RED CELL DISTRIBUTION WIDTH 14.3 % (11.5-14.5)
[2025-03-08 02:32] LABS: CREATININE 0.80 MG/DL (0.60-1.10); TOTAL CARBON DIOXIDE 25.6 MMOL/L (24-32); eCRCL 108 ML/MIN; eGFR > 90 ML/MIN
[2025-03-08] MEDS: nitroPRUSSIDE 0.2mg/mL in NS 100 ML IV SCH (08:15)
--- NOTE | 2025-03-08 09:27 | OPERATIVE REPORT ---
DATE OF SURGERY: 03/07/2025 DICTATING PHYSICIAN: Inder Wynn MD PREOPERATIVE DIAGNOSIS: Symptomatic left ICA stenosis. POSTOPERATIVE DIAGNOSIS: Symptomatic left ICA stenosis. PROCEDURE PERFORMED: Left carotid endarterectomy using EEG monitoring and bovine pericardial patch. SURGEON: Inder Wynn MD BRAKE OPERATOR SHEET METAL: None. ANESTHESIA: General/Dr. Jackson. DRAINS: Dylon x 1. INDICATIONS FOR OPERATION: A 55-year-old male with symptomatic left ICA stenosis, taken to surgery for endarterectomy. INTRAOPERATIVE FINDINGS: Critical left ICA stenosis with extensive plaque, no EEG changes. DESCRIPTION OF PROCEDURE: The patient was placed supine on the operating table. After induction of general anesthesia and placement of endotracheal tube, the neck was prepped and draped. After a timeout was performed, a transverse incision was made in the left neck. Platysma was identified and incised. Dissection was initiated into the sternocleidomastoid muscle. Facial vein was identified, isolated, ligated and divided. Carotid sheath was then incised. Hypoglossal nerve identified and preserved. The patient was heparinized with units of heparin. The common, external, and internal carotid artery were subsequently isolated. After a few minutes, the common, external, and internal carotid arteries were occluded. There were no EEG changes. An arteriotomy was extended proximally and distally. An endarterectomy was then performed. Endarterectomy was irrigated with heparinized saline. Distal flaps were tacked in place using sutures of 6-0 Prolene. Bovine pericardial patch was then brought to the field and secured in place with a running suture of 5-0 and 6-0 Prolene. Prior to securing the suture line, vessels were flushed. The suture line was then secured. Flow was then reestablished to the external carotid. After a few beats, flow was reestablished to the internal. The patient had some postoperative bleeding which required use of protamine with subsequent resolution. The wound was irrigated with antibiotic-containing solution. When hemostasis was found to be adequate, wounds closed in layers, skin closed with subcuticular stitch, dressings applied and the patient was transferred to the recovery room in stable condition after reversing from general anesthesia. Inder Wynn MD TID: [id number] RECEIPT: [id number] MARIA TERESA/SUKHWINDER/RANDOLPH
[2025-03-08] MEDS ORDERED: EMPAGLIFLOZIN 25 MG TABLET PO SCH (12:35)
[2025-03-08] MEDS ORDERED: EMPA25TA PO (12:36)
--- NOTE | 2025-03-08 13:37 | DISCHARGE SUMMARY-Residence ---
Discharge Summary Providers to Resident Creating Document: IRINEO LÓPEZMELISSA ~ Discharge Summary Admission Diagnosis: sore throat, left carotid stenosis Hospital Course DATE OF ADMISSION: 03/03/25 DATE OF DISCHARGE: 03/08/25 Discharge Diagnosis\Comment: Bilateral Carotid stenosis Swelling in right surgical site, not a complication of previous [facility] carotid endarterectomy GERD Hypertension T2DM Operations\Procedures: left carotid endarterectomy by Dr. Wynn Consultants: Surgeon-Dr. Wynn Complications: None Condition on DC: Stable New Medications: Empagliflozin (Jardiance) 25 Mg Tablet 1 TAB PO DAILY for 30 Days, #30 TAB 0 Refills Continued Medications: Amlodipine Besylate (Amlodipine Besylate) 10 Mg Tablet 1 TAB PO DAILY for 30 Days, #30 TAB 0 Refills Aspirin (Aspirin EC) 81 Mg Tablet.dr 1 TAB PO DAILY for 30 Days, #30 TAB 0 Refills Atorvastatin Calcium (Atorvastatin Calcium) 80 Mg Tablet 1 TAB PO DAILY for 30 Days, #30 TAB 0 Refills Clopidogrel Bisulfate (Clopidogrel) 75 Mg Tablet 1 TAB PO DAILY for 30 Days, #30 TAB 0 Refills Do not stop medication unless instructed by prescriber. Losartan Potassium (Losartan Potassium) 50 Mg Tablet 1 TAB PO DAILY for 30 Days, #30 TAB 0 Refills Metformin HCl (Metformin HCl) 500 Mg Tablet 1 TAB PO TIDWM for 30 Days, #60 TAB Discharge Summary: HPI as per admitting physician: 55-year-old male with past medical history of stroke status post carotid endarterectomy came to the ER with complaints of sore throat this morning and mild difficulty in swallowing his pills today. He denies fever, chills, cough, recent infections. He reports he has been having acid reflux for many years and has been taking Tums. He denies any choking episodes, hoarseness or voice changes. He denies weight loss. He denies chest pain, palpitations, abdominal pain, nausea, vomiting, constipation, diarrhea and neurological deficits He claims he has 80% left carotid stenosis and needs a carotid endarterectomy which is why he was admitted. Hospital course: Patient came in with sore throat and difficulty swallowing his pills, but there was resolution of symptoms by the evening. He had right carotid endarterectomy 1 week ago and had mild swelling in the right surgical site without any tenderness or drainage, which is not a complication of previous right carotid endarterecromy. Neck CTA showed complex fluid collection along the lateral aspect of the right carotid bifurcation and right internal carotid artery containing complex fluid and gas. Dr. Wynn was consulted, and he recommended observing the patient over the weekend and to schedule a left carotid endarterectomy. His previous head/neck CTA showed 80% stenosis of the proximal left internal carotid artery. The patient had no acute complaints and denied fever, chills. The swelling reduced and he had no sore throat or dysphagia the next day. His throat culture showed normal oral cheryl and blood culture showed no growth after 5 days. It would have probably been GERD so we started him on Protonix 40 mg p.o. We continued his home medications losartan 50 mg p.o. and amlodipine 10 mg p.o. for hypertension. His HGB A1c is 7.7 and glucose was elevated to 281 on admission, we started him on hyperglycemia hypoglycemia protocol and carb controlled diet. His glucose started trending down and Lantus 15 units was ordered. His glucose started fluctuating between 120 and 130 and his Lantus dosage was decreased to 10 units. He underwent left carotid endarterectomy on 03/08/25, without any complications. His vitals and labs were normal the next day, Dr. Centeno cleared him for discharge and he was discharged with metformin, Jardiance 25 mg and continued his home medications. Patient did not experience further complications throughout the entire hospital stay. Patient was seen and examined on the day of discharge. All labs, diagnostic workups, discharge plan discussed with the patient in detail during visit before discharge. All questions and concerns answered to the best of my professional knowledge. Imaging: Neck CT-03/03/25 1. Interval postsurgical changes of right carotid endarterectomy. Complex fluid collection along the lateral aspect of the right carotid bifurcation and right internal carotid artery containing complex fluid and gas. The gas is greater than would be expected for postoperative changes 1 week after surgery. Infectious etiology, including necrotizing infection can not be excluded in the appropriate clinical setting. Correlate with clinical findings. 2. No extravasation of arterial contrast is seen associated with the collection. 3. Atherosclerotic plaque of the left carotid bifurcation and proximal ICA as described above, similar to the prior exam. Vital Signs Date Time Temp Pulse Resp B/P (MAP) Pulse Ox O2 Delivery O2 Flow Rate FiO2 03/08/25 15:00 89 15 140/82 (101) 98 Room Air 03/08/25 13:00 97.3 03/08/25 08:00 0.0 Laboratory Tests Test 03/06/25 16:51 03/06/25 20:32 03/07/25 05:04 03/07/25 08:11 Glucometer 237 mg/dl 237 mg/dl 117 mg/dl 138 mg/dl White Blood Count 8.2 X10'3 Red Blood Count 4.60 X10'6 Hemoglobin 12.9 g/dl Hematocrit 37.4 % Mean Corpuscular Volume 81.5 FL Mean Corpuscular Hemoglobin 28.0 PG Mean Corpuscular Hemoglobin Concent 34.3 g/dL Red Cell Distribution Width 14.4 % Platelet Count 179 X10'3 Mean Platelet Volume 8.6 FL Neutrophils (%) (Auto) 63.8 % Lymphocytes (%) (Auto) 24.0 % Monocytes (%) (Auto) 8.6 % Eosinophils (%) (Auto) 3.2 % Basophils (%) (Auto) 0.4 % Neutrophils # (Auto) 5.3 X10'3 Lymphocytes # (Auto) 2.0 X10'3 Monocytes # (Auto) 0.7 X10'3 Eosinophils # (Auto) 0.3 X10'3 Basophils # (Auto) 0.0 X10'3 CBC Comment Sodium Level 140 MMOL/L Potassium Level 4.1 MMOL/L Chloride Level 105 MMOL/L Carbon Dioxide Level 29.4 MMOL/L Anion Gap 6 Blood Urea Nitrogen 25 MG/DL Creatinine 0.85 MG/DL Estimated GFR/1.73 m2 > 90 ML/MIN BUN/Creatinine Ratio 29.4 Glucose Level 120 MG/DL Calcium Level 8.9 MG/DL Magnesium Level 2.0 MG/DL Total Bilirubin 0.6 MG/DL Aspartate Amino Transf (AST/SGOT) 36 U/L Alanine Aminotransferase (ALT/SGPT) 68 U/L Alkaline Phosphatase 51 IU/L Total Protein 7.0 G/DL Albumin 3.2 G/DL Globulin 3.8 G/DL Albumin/Globulin Ratio 0.8 Chemistry Comments Test 03/07/25 13:25 03/07/25 14:48 03/07/25 16:47 03/07/25 20:36 Prothrombin Time 12.3 SECONDS INR International Normalized Ratio 1.2 INR Activated Partial Thromboplast Time 27 SECONDS Coagulation Comments Glucometer 181 mg/dl 235 mg/dl 240 mg/dl Test 03/08/25 01:35 03/08/25 08:52 03/08/25 11:59 White Blood Count 8.6 X10'3 Red Blood Count 3.54 X10'6 Hemoglobin 9.9 g/dl Hematocrit 28.8 % Mean Corpuscular Volume 81.4 FL Mean Corpuscular Hemoglobin 27.9 PG Mean Corpuscular Hemoglobin Concent 34.3 g/dL Red Cell Distribution Width 14.3 % Platelet Count 150 X10'3 Mean Platelet Volume 8.9 FL Neutrophils (%) (Auto) 84.9 % Lymphocytes (%) (Auto) 12.1 % Monocytes (%) (Auto) 2.9 % Eosinophils (%) (Auto) 0 % Basophils (%) (Auto) 0.1 % Neutrophils # (Auto) 7.3 X10'3 Lymphocytes # (Auto) 1.0 X10'3 Monocytes # (Auto) 0.3 X10'3 Eosinophils # (Auto) 0.0 X10'3 Basophils # (Auto) 0.0 X10'3 CBC Comment Sodium Level 140 MMOL/L Potassium Level 4.0 MMOL/L Chloride Level 106 MMOL/L Carbon Dioxide Level 25.6 MMOL/L Anion Gap 8 Blood Urea Nitrogen 23 MG/DL Creatinine 0.80 MG/DL Estimated GFR/1.73 m2 > 90 ML/MIN BUN/Creatinine Ratio 28.8 Glucose Level 217 MG/DL Calcium Level 7.8 MG/DL Total Bilirubin 0.5 MG/DL Aspartate Amino Transf (AST/SGOT) 27 U/L Alanine Aminotransferase (ALT/SGPT) 53 U/L Alkaline Phosphatase 41 IU/L Total Protein 6.3 G/DL Albumin 2.9 G/DL Globulin 3.4 G/DL Albumin/Globulin Ratio 0.9 Chemistry Comments Glucometer 155 mg/dl 189 mg/dl Examination at discharge: Awake , alert, and oriented x4, resting comfortably in the bed, in no acute distress HEENT: Atraumatic, normocephalic, EOMI, anicteric sclera ; pink conjunctiva Neck: Right sided very mild swelling near surgical site, non tender with no drainage. Trachea midline. Supple, full range of motion, no JVD Cardiac: Regular rhythm, regular rate with no murmurs all over the precordium. Respiratory: Equal breath sounds bilaterally, no tachypnea, no wheezing ,rub or rales, Chest wall is symmetric and without deformity. Gastrointestinal: Abdomen symmetric, non-distended, soft, non-tender, normal bowel sounds x4 quadrant, normoactive, no hepatosplenomegaly Musculoskeletal: No pedal edema, no cyanosis Neurological: Speech is clear, alert, and oriented x 4. No motor or sensory deficit, deep tendon reflexes normal, cerebellar intact. Cranial nerves II-XII intact. gait is unstable due to residual stroke deficit Skin: Warm and dry Advice at discharge: Follow up with Primary Care Provider in 1-2 weeks Follow up with Dr. Wynn in 2 weeks Please be compliant with metformin and Jardiance, and blood pressure medications Recommended carb controlled diet Avoid eating whites-sugar, salt, white bread, cakes, tortillas etc Recommended to increase physical activity Call 911 or come to ER if any emergency or neurological decline Recommend going to [facility] to obtain Primary care provider as they have current availability. you can reach them at [phone] *Problems/Diagnosis: (1) Bilateral carotid artery stenosis (2) GERD (gastroesophageal reflux disease) (3) Hypertension (4) Type 2 diabetes mellitus Total Time Spent on D/C: > 30 Minutes Date of Service: Mar 08, 2025 Billing Provider: NATASHA JORDAN MD Common Visit Codes: 38568-RTK/OBS DISCH DAY >30min IRINEO LÓPEZ, RES Mar 08, 2025 13:37 NATASHA JORDAN MD Mar 10, 2025 11:17
--- NOTE | 2025-03-09 13:53 | PATHOLOGY REPORT ---
[facility] [address] [place] [address] SURGICAL PATHOLOGY REPORT CaseNumber: [id number] Surgeon:Inder Wynn PA-C CLINICAL INFORMATION CLINICAL INFORMATION: Sore throat. DIAGNOSIS DIAGNOSIS: A.LYMPH NODE, LEFT CERVICAL; EXCISION - TWO LYMPH NODES SHOWING CHRONIC REACTIVE CHANGES, NON-SPECIFIC. DIAGNOSIS: B.PLAQUE, LEFT CAROTID; EXCISION - MILDLY CALCIFIED ATHEROSCLEROTIC PLAQUE, PER GROSS DESCRIPTION. MICROSCOPIC DESCRIPTION A. LYMPH NODE, LEFT CERVICAL MICROSCOPIC DESCRIPTION: Two slides are examined. Present are two lymph nodes. They have intact architecture including capsule and subcapsular and medullary sinuses. There are chronic reactive changes including follicular hyperplasia with germinal center formation. Metastatic carcinoma is not identified. B. PLAQUE, LEFT CAROTID MICROSCOPIC DESCRIPTION: Not performed. (jf) GROSS DESCRIPTION A. LYMPH NODE, LEFT CERVICAL GROSS DESCRIPTION: Received in a container of formalin labeled with the patient's name, number, and identified as "left cervical node" is a 2 x 1 x 0.7 cm pink-gautam lymph node candidate. The specimen is bisected and entirely submitted as A1. Received in the same container is a 0.9 x 0.5 x 0.4 cm pink-gautam lymph node candidate. The specimen is bisected and entirely submitted as A2. The time at which the specimen was removed was 1300. The time at which the specimen was placed in formalin was 1400. (dcb) B. PLAQUE, LEFT CAROTID GROSS DESCRIPTION: Received in a container of formalin labeled with the patient's name, number, and "left carotid plaque" is a 3 cm aggregate of irregularly shaped pieces of mildly calcified atherosclerotic cast. A thrombus is not identified. No sections. Electronically signed by: Gage Lucas M.D. 03/09/2025 1:14:00 PM
== END 2025-03-08 16:56 | disposition home or self-care (01) | DRG 24 ==
LOC: ER 07:40 → ED HOLD 10:35 → ORTHO 4S 12:20 → CICU 2S 03-07 10:19
PROVIDERS: ADMIT Internal Medicine; ATTEND Internal Medicine
PROC: BW2F1ZZ Computerized Tomography (CT Scan) of Neck using Low Osmolar Contrast (ICD-10-PCS; 2025-03-03)
PROC: 03UL0KZ Supplement Left Internal Carotid Artery with Nonautologous Tissue Substitute, Open Approach (ICD-10-PCS; 2025-03-07)
PROC: 4A1004G Monitoring of Central Nervous Electrical Activity, Intraoperative, Open Approach (ICD-10-PCS; 2025-03-07)
PROC: 03CL0ZZ Extirpation of Matter from Left Internal Carotid Artery, Open Approach (ICD-10-PCS; principal; 2025-03-07 11:02)
DX: I65.22 Occlusion and stenosis of left carotid artery (principal); E11.65 Type 2 diabetes mellitus with hyperglycemia; K21.9 Gastro-esophageal reflux disease without esophagitis; E78.00 Pure hypercholesterolemia, unspecified; Z79.84 Long term (current) use of oral hypoglycemic drugs; Z79.899 Other long term (current) drug therapy
CPT/HCPCS: 36415; 70491; 80053; 80061; 82948; 83036; 83605; 83735; 84145; 85025; 85610; 85651; 85730; 86140; 86885; 86900; 86901; 87040; 87081; 87811; 87880; 92508; 92616; 93005; 95813; 95816; 96365; 96367; 97110; 97116; 97162; 99285; A4618; A6258; A6402; A6449; A7000; G0378; J0690; J1100; J1171; J1644; J1815; J2003; J2250; J2270; J2371; J2405; J2543; J2704; J2720; J2919; J3010; J3373; J3490; J7040; J7050; J7120; P9045; Q9967